=== PATIENT | female | born 1995 | race Caucasian/White ===

== ENCOUNTER 2016-06-14 20:04 | Emergency (ER) | payer OTHER | END 2016-06-14 22:35 | disposition home or self-care (01) | LOC: ER1 20:04 | DX: S60.452A Superficial foreign body of right middle finger, initial encounter (principal); W45.8XXA Other foreign body or object entering through skin, initial encounter | CPT/HCPCS: 99283 ==

== ENCOUNTER 2020-06-10 17:10 | Inpatient (IN) | payer OTHER ==
[~2020-06-10] VITALS: Ht 157.5 cm; Wt 63.5 kg
[2020-06-10 19:35] LABS: HEMOGLOBIN 11.6 gm/dl (12.3-15.3); RED BLOOD COUNT 3.77 M/UL (4.00-5.10); WHITE BLOOD COUNT 6.8 K/UL (4.5-11.0)
[2020-06-10 21:17] LABS: BUN/CREATININE RATIO 18 (0-10)
[2020-06-10] MEDS ORDERED: PRENATAL VITAM1 EAC3 PO (23:09)
[2020-06-11] MEDS ORDERED: COLACE 100MG C100 MG PO (10:16)
[2020-06-11] MEDS ORDERED: IBUPROFEN600 MG PO (10:16)
[2020-06-12 06:46] LABS: HEMOGLOBIN 11.6 gm/dl (12.3-15.3)
== END 2020-06-12 18:18 | disposition home or self-care (01) | DRG 807 ==
LOC: GENOP 17:10 → OB 18:48
PROVIDERS: Obstetrics & Gynecology; ADMIT Obstetrics & Gynecology
PROC: 4A1HX4Z Monitoring of Products of Conception, Cardiac Electrical Activity, External Approach (ICD-10-PCS; principal; 2020-06-10)
PROC: 10E0XZZ Delivery of Products of Conception, External Approach (ICD-10-PCS; 2020-06-11)
PROC: 0KQM0ZZ Repair Perineum Muscle, Open Approach (ICD-10-PCS; 2020-06-11)
PROC: 3E033VJ Introduction of Other Hormone into Peripheral Vein, Percutaneous Approach (ICD-10-PCS; 2020-06-11)
DX: O12.14 Gestational proteinuria, complicating childbirth (principal); Z37.0 Single live birth; Z3A.39 39 weeks gestation of pregnancy; O70.1 Second degree perineal laceration during delivery; Z20.822 Contact with and (suspected) exposure to COVID-19
CPT/HCPCS: 51702; 80053; 82800; 85014; 85018; 85025; 90715; J2300; J2590; J2795; J3010; U0002